=== PATIENT | female | born 1980 | race Native Hawaiian/Other Pacific Islander ===

== ENCOUNTER 2023-04-01 13:42 | Emergency (ER) | payer OTHER ==
[~2023-04-01] VITALS: Ht 152.4 cm; Wt 61.2 kg
[2023-04-01 13:48] VITALS: BP 155/95; TEMP 98.6
== END 2023-04-01 16:21 | disposition home or self-care (01) ==
LOC: ED 13:42
DX: S63.502A Unspecified sprain of left wrist, initial encounter (principal); W19.XXXA Unspecified fall, initial encounter
CPT/HCPCS: 96372; 99283; J1100; J1885

== ENCOUNTER 2023-04-30 14:27 | Emergency (ER) | payer OTHER ==
[~2023-04-30] VITALS: Ht 152.4 cm; Wt 61.2 kg
[2023-04-30 16:35] VITALS: BP 131/78; TEMP 98.9
== END 2023-04-30 16:35 | disposition home or self-care (01) ==
LOC: ED 14:27
DX: B34.9 Viral infection, unspecified (principal); F17.210 Nicotine dependence, cigarettes, uncomplicated
CPT/HCPCS: 87502; 87635; 99281; U0003